=== PATIENT | female | born 1940 | race Caucasian/White ===

== ENCOUNTER → 2023-11-02 14:00 | Outpatient (REF) | payer OTHER, SELFPAY ==
[2023-11-02 17:24] LABS: Urine Albumin Negative (Neg - Trace); Urine Bilirubin Negative (Negative); Urine Character Clear (Clear); Urine Color Yellow; Urine Glucose Negative (Negative); Urine Ketone Negative (Negative); Urine Leukocyte 2+ (Negative); Urine Nitrite Negative (Negative); Urine Occult Blood 2+ (Negative); Urine Specific Gravity 1.005 (<1.030); Urine Urobilinogen Negative (Neg - 1+)
[2023-11-02 18:06] LABS: Urine Bacteria Few (Negative); Urine White Cell 26-30 /HPF (0-5)
== END ==
LOC: CLAB 14:00
PROVIDERS: ATTENDING PHYSICIAN Internal Medicine
DX: R39.9 Unspecified symptoms and signs involving the genitourinary system (principal)
CPT/HCPCS: 81003; 81015; 87086; 87088; 87186

== ENCOUNTER → 2023-11-12 14:34 | Outpatient (REF) | payer OTHER, SELFPAY | LOC: WDC 14:34 | PROVIDERS: ATTENDING PHYSICIAN Physician Assistant | DX: Z12.31 Encounter for screening mammogram for malignant neoplasm of breast (principal) | CPT/HCPCS: 77063; 77067 ==

== ENCOUNTER 2024-01-17 12:09 | Emergency (ER) | payer OTHER, SELFPAY ==
[2024-01-17] VITALS (18 sets, daily range): BP systolic 104–158; BP diastolic 47–100; BMI 24.6
[2024-01-17 13:39] LABS: % Basophils 0.5 % (0-2); % Eosinophils 2.2 % (0-6); % Immature Granulocytes 0.3 % (0-0.5); % Lymphocytes 26.3 % (20.5-51.1); % Monocytes 9.3 % (1.7-9.3); % Neutrophils 61.4 % (42.2-75.2); Absolute Eosinophils 0.1 10^3/uL (0-0.7); Absolute Lymphocytes 1.5 10^3/uL (1.2-3.4); Absolute Monocytes 0.5 10^3/uL (0.1-0.6); Absolute Neutrophils 3.6 10^3/uL (1.4-6.5); Hematocrit 39.3 % (37.0-47.0); Hemoglobin 13.4 g/dL (12.0-16.0); Mean Corp Hgb Conc. 34.1 g/dL (33.0-37.0); Mean Corpuscular Hgb 31.3 pg (27.0-31.0); Mean Corpuscular Volume 91.8 fL (81.0-99.0); Mean Platelet Volume 9.9 fL (7.4-10.4); Nucleated Red Blood Cells % 0 %; Platelet Count 157 10^3/uL (130-400); Red Blood Cell Count 4.28 10^6/uL (4.20-5.40); Red Cell Dist. Width 12.1 % (11.5-14.5); White Blood Cell Count 5.8 10^3/uL (4.8-10.8)
[2024-01-17 13:48] LABS: ALT (SGPT) 26 U/L (0-35); AST (SGOT) 39 U/L (14-36); Albumin 4.5 g/dl (3.5-5.0); Alkaline Phosphatase 84 U/L (38-126); Blood Urea Nitrogen 14 mg/dl (7-17); Calcium 9.6 mg/dl (8.4-10.2); Carbon Dioxide 24 mmol/L (22-30); Chloride 105 mmol/L (98-107); Estimated Creatinine Clearance 53 ml/min; Glucose 97 mg/dl (70-99); Potassium 4.2 mmol/L (3.5-5.1); Sodium 137 mmol/L (135-145); Total Bilirubin 0.8 mg/dl (0.2-1.3); eGFR > 60.00
--- NOTE | 2024-01-17 14:03 | ED.GENMED ---
History of Present Illness
<Loreta Garcia NP - Last Filed: 01/17/24 20:35>
General
Chief Complaint: Heart Rate Problem
Source: patient
Exam Limitations: none
Time Seen by Provider: 01/17/24 13:56
Nursing documentation reviewed up to this point in time: agreed with
Travel History
Have you had any contact with someone who has COVID-19?: No
Do you have any symptoms of coronavirus? Fever > 100 degrees, chills, cough, shortness of breath, sore throat, loss of taste or smell, muscle aches, or headache?: No
History of Present Illness
History of Present Illness:
Patient to ED with complaint of Afib. States she suddenly felt her heart racing, checked rhythm on her watch. She has had prior episodes of Afib but has always converted without intervention. Brought to ED by spouse for eval. Denies any
CP/pressure. Mild SETRADA. SHe is not on blood thinners.
Past History
<Loreta Garcia NP - Last Filed: 01/17/24 20:35>
Past History
ED Past Medical History: Arrthythmia and HTN; Negative Asthma, Hypercholesterolemia or NIDDM
ED Past Surgical History: Other (Aortic disection on Asending aorta)
Social History
Tobacco: Non-smoker
Alcohol: Occasional
Personal:
Living: with family
Review of Systems
<Loreta Garcia NP - Last Filed: 01/17/24 20:35>
Review of Systems
Allergies reviewed?: Yes
All Other Systems: ROS reviewed and negative except as documented in HPI and ROS
Constitutional: Reports no symptoms
EENT: Reports no symptoms
Respiratory: Reports other (Mild ESTRADA)
Cardiac: Reports palpitations
ABD/GI: Reports no symptoms
Musculoskeletal: Reports no symptoms
Skin: Reports no symptoms
Neurological: Reports no symptoms
Psychiatric: Reports no symptoms
Phy Exam
<Loreta Garcia NP - Last Filed: 01/17/24 20:35>
General Physical Exam
General Presentation: well appearing and no apparent distress
General age: appears stated age
General Skin: warm and dry
General Habitus: normal
General Mental: alert
General Hydration: appears well hydrated
Cardiovascular Exam
Cardiovascular Exam: no edema and irregularly irregular
Pulmonary Exam
Pulmonary Exam: lungs clear and no respiratory distress
Gastrointestinal Exam
Gastrointestinal Exam: non tender and soft
Musculoskeletal Exam
Musculoskeletal Exam: full ROM and neuro vasc intact
Skin Exam
Skin Exam: normal color, warm/dry and no rash
Psychiatric Exam
Psychiatric Exam: normal mood/affect
Scores
<Loreta Garcia NP - Last Filed: 01/17/24 20:35>
[id number] Score for Afib Stroke Risk
Score: 5
Anticoagulation Recommendations: Recommend anticoagulation (as validated in nonvalvular fib)
<Venkat Maradiaga DO - Last Filed: 01/17/24 15:50>
[id number] Score for Afib Stroke Risk
Age in Years (65=0, 65-74=1, >/=75=2): > or = 75
Sex (Female=+1): Female
Congestive Heart Failure History (Yes=+1): No
Hypertension History (Yes=+1): Yes
Stroke/TIA/Thromboembolism History (Yes=+2): No
Vascular Disease History (Yes=+1): Yes
Diabetes Mellitus (Yes=+1): No
Score: 5
Anticoagulation Recommendations: Recommend anticoagulation (as validated in nonvalvular fib)
Course
<Loreta Garcia NP - Last Filed: 01/17/24 20:35>
Orders/Labs/Results
Orders:
Orders
01/17/24 12:11
Electrocardiogram (*1) Urgent
Reason for Study: Bradycardia / Tachycardia
EKG- Treatment ONCE
01/17/24 13:24
Complete Blood Count/With Diff Urgent
Comprehensive Metabolic Panel Urgent
01/17/24 15:23
Propofol [Diprivan] 20 ml .ROUTE .STK-MED
01/17/24 15:34
Electrocardiogram (*1) Urgent
Reason for Study: Other
Other Reason for Exam: Post cardioversion
EKG- Treatment ONCE
Abnormal Lab Results
01/17/24
13:24
MCH 31.3 H pg
(27.0-31.0)
AST 39 H U/L
(14-36)
01/17/24 13:24
01/17/24 13:24
Vital Signs
Initial and Last Documented VS:
Initial Vital Signs
Temp Pulse Resp BP Pulse Ox
98.8 F 119 16 158/100 98
01/17/24 12:14 01/17/24 12:14 01/17/24 12:14 01/17/24 12:14 01/17/24 12:14
Last Documented Vital Signs
Temp Pulse Resp BP Pulse Ox
98.7 F 59 13 141/58 97
01/17/24 16:15 01/17/24 16:30 01/17/24 16:30 01/17/24 16:30 01/17/24 16:30
<Venkat Maradiaga DO - Last Filed: 01/17/24 15:50>
Orders/Labs/Results
Orders:
Orders
01/17/24 12:11
Electrocardiogram (*1) Urgent
Reason for Study: Bradycardia / Tachycardia
EKG- Treatment ONCE
01/17/24 13:24
Complete Blood Count/With Diff Urgent
Comprehensive Metabolic Panel Urgent
01/17/24 15:23
Propofol [Diprivan] 20 ml .ROUTE .STK-MED
01/17/24 15:34
Electrocardiogram (*1) Urgent
Reason for Study: Other
Other Reason for Exam: Post cardioversion
EKG- Treatment ONCE
Abnormal Lab Results
01/17/24
13:24
MCH 31.3 H pg
(27.0-31.0)
AST 39 H U/L
(14-36)
01/17/24 13:24
01/17/24 13:24
Vital Signs
Initial and Last Documented VS:
Initial Vital Signs
Temp Pulse Resp BP Pulse Ox
98.8 F 119 16 158/100 98
01/17/24 12:14 01/17/24 12:14 01/17/24 12:14 01/17/24 12:14 01/17/24 12:14
Last Documented Vital Signs
Temp Pulse Resp BP Pulse Ox
98.7 F 59 13 141/58 97
01/17/24 16:15 01/17/24 16:30 01/17/24 16:30 01/17/24 16:30 01/17/24 16:30
Procedures
<Venkat Maradiaga, DO - Last Filed: 01/17/24 15:50>
Cardioversion
Indication:: Afib
Performed by:: vic
Synchronized?: Yes
Energy Used: Other (100J)
Number of attempts: 1
Successful?: Yes
Complications: none
ASA Risk Score: Class II
Any reaction or bad outcome to prior sedation/anesthesia?: No history of a reaction
Sedation level to be attained: deep
Chart and allergies reviewed: Yes
Patient reassessed prior to sedation: Yes
Time out completed at (validating right patient & procedure): 15:29
History of difficult intubation: No
Airway free of obstruction: Yes
Patient has a gag reflex: Yes
Patient is able to open mouth: Yes
Patient has no dentures: Yes
Patient has no loose teeth: Yes
Medication administered by Provider during Moderate Sedation: IV Propofol (mg)
Total dose administered: 75
Time drug administered: 15:29
Start Time: 15:29
Stop Time: 15:39
<Loreta Garcia NP - Last Filed: 01/17/24 20:35>
*Radiology
Radiology exam reviewed: radiology read reviewed
*Pulse Oximetry
Patient hypoxic: no
*EKG
Rate: normal
Rhythm: a-fib
*Critical Care Note
Total Time (30-74mins, 75-104mins- exclusive of procedures): Not Applicable
<Loreta Garcia NP - Last Filed: 01/17/24 20:35>
Update Note
Update Note:
Cardioversion by Dr. Maradiaga.
ED Attending Note
<Loreta Garcia NP - Last Filed: 01/17/24 20:35>
-
Portions of this chart may have been created with voice recognition software.� Occasional wrong word or��sound alike� substitutions may have occurred due to the inherent limitations of voice recognition software.
<Venkat Maradiaga DO - Last Filed: 01/17/24 15:50>
ED Attending Note
Patient seen and examined by attending physician: Yes
I performed the substantive portion of visit, reviewed & personally made and approve the management plan that is documented in note by myself or WOOD.: Yes
ED Attending Note:
Patient 83-year-old female went into atrial fibrillation earlier this morning. Patient's had these episodes intermittently but never lasted for more than 15 to 20 minutes. Patient denies any recent illnesses or injuries. Patient denies any chest
pain, shortness of breath or lightheadedness. Patient does feel off. Patient denies any GI or symptoms. Patient is not anticoagulated. On physical exam the patient does not appear to be in any distress. Heart rate is mildly tachycardic and
irregular irregular rhythm. No neck vein distention. Patient has no peripheral edema, cyanosis or tenderness. Abdomen soft nontender. Lungs are clear. Patient has a mildly tachycardic atrial fibrillation. Patient agreed for cardioversion which
was done successfully 100 J.
Discharge Plan
Departure
Patient Disposition: Home (Routine Discharge)
Date of Disposition: 01/17/24
Time of Disposition: 16:44
Patient with high blood pressure during this ER visit?: No
Condition: Good
Covid-19: Not Applicable
Discharge Problem:
Atrial fibrillation with rapid ventricular response, Encounter for cardioversion procedure
Instructions: Atrial Fibrillation (DC), Cardioversion (DC), MODERATE SEDATION ADULT
Prescriptions:
New
Eliquis 5 mg tablet
5 mg PO BID Qty: 30 1RF
No Action
multivitamin Tablet
1 tab PO QPM
clonidine HCl 0.1 mg Tablet
0.1 mg PO PRN PRN (Reason: SBP> 130)
gabapentin 600 mg Tablet
600 mg PO QPM
cyanocobalamin (vitamin B-12) [Vitamin B-12] 1,000 mcg Tablet
1,000 mcg PO MOWEFR
spironolactone [Aldactone] 25 mg Tablet
25 mg PO DAILY
isosorbide mononitrate 120 mg Tablet Extended Release 24 Hr
120 mg PO HS
levothyroxine 88 mcg Tablet
88 mcg PO DAILY
amlodipine 10 mg Tablet
10 mg PO DAILY
metoprolol succinate 25 mg Tablet Extended Release 24 Hr
12.5 mg PO HS
losartan 100 mg Tablet
100 mg PO DAILY
mupirocin 2 % ointment
1 applic topical BID Qty: 1 0RF
Patient Comments:
last dose was this am, 08/20/22
sennosides [senna] 8.6 mg Tablet
17.2 mg PO BID Qty: 2 0RF
aspirin 325 mg Tablet
325 mg PO DAILY Qty: 1 0RF
docusate sodium 100 mg Capsule
100 mg PO BID Qty: 1 0RF
meloxicam 15 mg tablet
15 mg PO DAILY Qty: 14 0RF
Rx Instructions:
take with food
post-op
famotidine 20 mg tablet
20 mg PO HS Qty: 30 0RF
dexamethasone 4 mg tablet
4 mg PO BID Qty: 6 0RF
Rx Instructions:
take with food
post-op use only
acetaminophen 500 mg Tablet
1,000 mg PO QID Qty: 0 0RF
oxycodone 5 mg tablet
5 - 10 mg PO Q6HPRN PRN (Reason: 1 tab moderate-2 tabs severe pain) Qty: 30 0RF
Rx Instructions:
Dx TKA
ongoing therapy
Referrals:
Chip Clemons MD [Active] - Call in 1-3 days for appt
Donal Figueredo MD [Family Provider] - Follow up in 5-7 days
Activity Restrictions/Additional Instructions:
Continue present medications and therapy.
Interventions
Interventions:
*Risk Screen - Suicide Last Done: 01/17/24 13:00
*General Assessment Last Done: 01/17/24 13:23
*Neglect/Abuse Screening Last Done: 01/17/24 13:00
ED- Fall Risk Assessment Last Done: 01/17/24 13:25
*ED COVID-19 Vaccine History Last Done: 01/17/24 12:14
*Nursing Disposition Last Done: 01/17/24 17:18
ED- Cardiac Assessment Last Done: 01/17/24 13:25
ED- Pulmonary Assessment Last Done: 01/17/24 13:25
Discharge Date and Time
Discharge Date/Time: 01/17/24 17:21
Print Language: [place]
== END 2024-01-17 17:21 | disposition home or self-care (01) ==
LOC: EMR 12:09
PROVIDERS: EMERGENCY PHYSICIAN Emergency Medicine; FAMILY PHYSICIAN Internal Medicine
DX: I48.91 Unspecified atrial fibrillation (principal); I10 Essential (primary) hypertension
CPT/HCPCS: 99285; 92960; 99152; 80053; 85025; 93005

== ENCOUNTER → 2024-01-27 09:07 | Outpatient (REF) | payer OTHER, SELFPAY ==
[2024-01-27 13:52] LABS: Free T4 1.04 ng/dl (0.78-2.19)
[2024-01-27 14:06] LABS: TSH 1.67 uIU/ml (0.47-4.68)
== END ==
LOC: HWLAB 09:07
PROVIDERS: ATTENDING PHYSICIAN Internal Medicine
DX: E03.9 Hypothyroidism, unspecified (principal)
CPT/HCPCS: 36415; 84439; 84443

== ENCOUNTER → 2024-01-31 08:15 | Outpatient (REF) | payer OTHER, SELFPAY | LOC: HWRAD 08:15 | PROVIDERS: ATTENDING PHYSICIAN Internal Medicine; FAMILY PHYSICIAN Internal Medicine | DX: I71.03 Dissection of thoracoabdominal aorta (principal) | CPT/HCPCS: 71275; Q9967 ==

== ENCOUNTER 2024-02-05 22:25 | Inpatient (IN) | payer OTHER, SELFPAY ==
[2024-02-05] VITALS (12 sets, daily range): BP systolic 115–153; BP diastolic 66–98
[2024-02-05 20:51] LABS: % Basophils 0.3 % (0-2); % Eosinophils 1.9 % (0-6); % Immature Granulocytes 0.2 % (0-0.5); % Lymphocytes 28.3 % (20.5-51.1); % Monocytes 8.4 % (1.7-9.3); % Neutrophils 60.9 % (42.2-75.2); Absolute Eosinophils 0.1 10^3/uL (0-0.7); Absolute Lymphocytes 1.6 10^3/uL (1.2-3.4); Absolute Monocytes 0.5 10^3/uL (0.1-0.6); Absolute Neutrophils 3.5 10^3/uL (1.4-6.5); Hematocrit 38.9 % (37.0-47.0); Mean Corpuscular Hgb 31.6 pg (27.0-31.0); Mean Corpuscular Volume 87.8 fL (81.0-99.0); Mean Platelet Volume 10.2 fL (7.4-10.4); Nucleated Red Blood Cells % 0 %; Platelet Count 171 10^3/uL (130-400); Red Blood Cell Count 4.43 10^6/uL (4.20-5.40); White Blood Cell Count 5.8 10^3/uL (4.8-10.8)
[2024-02-05 21:12] LABS: ALT (SGPT) 26 U/L (0-35); AST (SGOT) 39 U/L (14-36); Albumin 5.1 g/dl (3.5-5.0); Alkaline Phosphatase 84 U/L (38-126); Blood Urea Nitrogen 12 mg/dl (7-17); Calcium 10.3 mg/dl (8.4-10.2); Carbon Dioxide 24 mmol/L (22-30); Chloride 102 mmol/L (98-107); Glucose 96 mg/dl (70-99); Potassium 3.9 mmol/L (3.5-5.1); Sodium 138 mmol/L (135-145); Total Bilirubin 0.9 mg/dl (0.2-1.3); Total Protein 7.4 g/dl (6.3-8.2); eGFR > 60.00
[2024-02-05] MEDS: CARDIZEM 5 MG IV (21:16)
[2024-02-05] MEDS: CARDIZEM 125 IV (21:18)
[2024-02-05 21:41] LABS: TSH 2.37 uIU/ml (0.47-4.68)
--- NOTE | 2024-02-05 21:44 | ED.GENMED ---
History of Present Illness
General
Chief Complaint: Heart Rate Problem
Source: patient, records and spouse
Exam Limitations: none
Time Seen by Provider: 02/05/24 20:29
Nursing documentation reviewed up to this point in time: agreed with
History of Present Illness
History of Present Illness:
83-year-old female presents emergency ferment due to rapid atrial fibrillation. Recent cardioversion. Recently started on Eliquis.
Past History
Past History
ED Past Medical History: Arrthythmia and HTN; Negative Asthma, Hypercholesterolemia or NIDDM
ED Past Surgical History: Other (Aortic disection on Asending aorta)
Social History
Tobacco: Non-smoker
Alcohol: Occasional
Personal:
Living: with family
Review of Systems
Review of Systems
Allergies reviewed?: Yes
All Other Systems: Not applicable
Constitutional: Reports no symptoms
EENT: Reports no symptoms
Respiratory: Reports no symptoms
Cardiac: Reports palpitations
ABD/GI: Reports no symptoms
: Reports no symptoms
Musculoskeletal: Reports no symptoms
Skin: Reports no symptoms
Neurological: Reports no symptoms
Endocrine: Reports no symptoms
Hematologic/Lymphatic: Reports no symptoms
Psychiatric: Reports no symptoms
Phy Exam
Physical Exam
Physical Exam:
Physical Exam
General: no apparent distress, not acutely ill
Neck: supple. no meningeal signs. normal posterior pharynx
Heart: s1/s2 tachycardia, irregular rhythm, no murmur. equal radial
pulses.
HEENT: Pupils equal round reactive to light, EOMI
Lungs: no acute respiratory distress. clear bilaterally
Abdomen: normal bowel sounds. not tender. no CVAT
Neuro: alert and oriented. no focal neurological deficits cranial nerves II through XII intact
Skin: no rash
Psychiatric: well kept. interactive and cooperative
Extremities: no edema. no calf tenderness. negative homans. good distal pulses
Course
Orders/Labs/Results
Orders:
Orders
02/05/24 19:51
EKG [Electrocardiogram (*1)] Urgent
Reason for Study: Bradycardia / Tachycardia
02/05/24 19:52
EKG- Treatment ONCE
02/05/24 20:46
CBC/With Diff [Complete Blood Count/With Diff] Urgent
CMP [Comprehensive Metabolic Panel] Urgent
TSH Urgent
02/05/24 21:00
Diltiazem 125 mg/125 ml Nss [Cardizem] 125 mg in 125 ml IV NOW
Initial dose in mg/hr, then titrate:: 5
Titrate to keep:: Heart rate 80-100 bpm
Titrate by mg/hr:: 5 mg/hr
Frequency of titrations (minutes):: 15
Maximum dose in mg/hr:: 15
Diltiazem HCl [Cardizem] 5 mg IV NOW STA
Abnormal Lab Results
02/05/24
20:46
MCH 31.6 H pg
(27.0-31.0)
Calcium 10.3 H mg/dl
(8.4-10.2)
AST 39 H U/L
(14-36)
Albumin 5.1 H g/dl
(3.5-5.0)
02/05/24 20:46
02/05/24 20:46
Vital Signs
Initial and Last Documented VS:
Initial Vital Signs
Temp Pulse Resp BP Pulse Ox
97.9 F 136 22 149/98 98
02/05/24 19:56 02/05/24 19:56 02/05/24 19:56 02/05/24 19:56 02/05/24 19:56
Last Documented Vital Signs
Temp Pulse Resp BP Pulse Ox
97.9 F 97 14 149/89 96
02/05/24 19:56 02/05/24 21:16 02/05/24 21:00 02/05/24 21:16 02/05/24 21:00
MDM/Problems Addressed
Differential Diagnosis Includes:
Dysrhythmia, CHF
MDM/Problems Addressed:
83-year-old female with rapid atrial fibrillation, diltiazem drip. Patient taking Eliquis. On Eliquis for about 2 weeks. Recent cardioversion and return to A-fib. Admit to hospitalist for rate control and further evaluation.
Chronic conditions affecting care: HTN and Arrhythmia
Acute Exacerbation and/or Progression of Chronic Illness: HTN and Arrhythmia
*Pulse Oximetry
Patient hypoxic: no
*EKG
Interpreted by ED Provider?: Yes
EKG Intrepretation Date: 02/05/24
EKG Intrepretation Time: 19:54
Interpretation: abnormal
Comparison EKG: changes noted
Heart Rate: 112
Rate: tachycardiac
Rhythm: a-fib
[place]: left axis deviation
Interval: normal interval
QRS Pattern: right bundle branch block
Ischemia: non-specific ST changes
*Air And Water Filler Interpretation
Rate: tachycardiac
Interpretation: abnormal
Heart Rate: 112
Rhythm: a-fib
*Critical Care Note
Total Time (30-74mins, 75-104mins- exclusive of procedures): 30
comment:
Critical care statement: A total of 30 minutes of critical care time was provided for this patient. This includes management of unstable vital signs, evaluation of the patient at bedside, reviewing the patient's pertinent medical records, discussion
with consultants, review of old EKGs and review of pertinent medical records. This time with separate from time utilized to perform the aforementioned documented procedures
Data Reviewed
Source: records
Prescriptions/Medications Considered But Not Given:
Cardioversion not indicated due to patient's recent start of Eliquis and recent cardioversion and returned to A-fib.
Patient Management
Social determinants of health affecting care: Living situation
Discussion with other providers: Hospitalist
Escalation/DeEscalation of care consider admission/obs:
Admit indicated
ED Attending Note
-
Portions of this chart may have been created with voice recognition software.� Occasional wrong word or��sound alike� substitutions may have occurred due to the inherent limitations of voice recognition software.
Discharge Plan
Departure
Patient Disposition: Admit
Date of Disposition: 02/05/24
Time of Disposition: 21:48
Admit to: Telemetry
Presentation/result/management discussed w/ accepting MD/DO: Hospitalist
Patient with high blood pressure during this ER visit?: Yes
Condition: Good
Discharge Problem:
Atrial fibrillation with rapid ventricular response
Prescriptions:
No Action
multivitamin Tablet
1 tab PO QPM
clonidine HCl 0.1 mg Tablet
0.1 mg PO PRN PRN (Reason: SBP> 130)
gabapentin 600 mg Tablet
600 mg PO QPM
cyanocobalamin (vitamin B-12) [Vitamin B-12] 1,000 mcg Tablet
1,000 mcg PO MOWEFR
spironolactone [Aldactone] 25 mg Tablet
25 mg PO DAILY
isosorbide mononitrate 120 mg Tablet Extended Release 24 Hr
120 mg PO HS
levothyroxine 88 mcg Tablet
88 mcg PO DAILY
amlodipine 10 mg Tablet
10 mg PO DAILY
metoprolol succinate 25 mg Tablet Extended Release 24 Hr
12.5 mg PO HS
losartan 100 mg Tablet
100 mg PO DAILY
mupirocin 2 % ointment
1 applic topical BID Qty: 1 0RF
Patient Comments:
last dose was this am, 08/20/22
sennosides [senna] 8.6 mg Tablet
17.2 mg PO BID Qty: 2 0RF
aspirin 325 mg Tablet
325 mg PO DAILY Qty: 1 0RF
docusate sodium 100 mg Capsule
100 mg PO BID Qty: 1 0RF
meloxicam 15 mg tablet
15 mg PO DAILY Qty: 14 0RF
Rx Instructions:
take with food
post-op
famotidine 20 mg tablet
20 mg PO HS Qty: 30 0RF
dexamethasone 4 mg tablet
4 mg PO BID Qty: 6 0RF
Rx Instructions:
take with food
post-op use only
acetaminophen 500 mg Tablet
1,000 mg PO QID Qty: 0 0RF
oxycodone 5 mg tablet
5 - 10 mg PO Q6HPRN PRN (Reason: 1 tab moderate-2 tabs severe pain) Qty: 30 0RF
Rx Instructions:
Dx TKA
ongoing therapy
Eliquis 5 mg tablet
5 mg PO BID Qty: 30 1RF
Referrals:
Donal Figueredo MD [Family Provider] -
Interventions
Interventions:
*Risk Screen - Suicide Last Done: 02/05/24 19:56
*General Assessment Last Done: 02/05/24 19:56
*Neglect/Abuse Screening Last Done: 02/05/24 19:56
Discharge Date and Time
Print Language: TURKMEN
--- NOTE | 2024-02-05 22:07 | HPS.HSE ---
Family Physician
-
Family Physician: Donal Figueredo
Chief Complaint
-
racing heart
History of Present Illness
83F HX Prx AF , recently cardioverted on 01/17/24 and started on Eliquis 2weeks ago eval at ER for symptomatic fast AF.
- came to ER due to racing heart for last 1 Hrs
- denied SoB, CP, lightheadedness
Medical History
Past Medical History
Past Medical History: Reports Other
Additional Past Medical History:
1. Osteoarthritis.
2. Hypertension.
3. Hyperlipidemia.
4. Nonsustained ventricular tachycardia.
5. Bradycardia.
6. Right bundle branch block.
7. Aortic dissection status post repair.
8. Bronchiectasis.
9. Peripheral neuropathy.
10.Hypothyroidism.
Past Surgical History: Reports Other
Additional Past Surgical History:
1. Aortic dissection with AV resuspension, 2017.
2. Left total hip arthroplasty.
3. Right total hip arthroplasty.
4. Blepharoplasty.
5. Left thumb surgery.
Social History
Tobacco: Non-smoker
Alcohol: Occasional ( two drinks three nights a week.)
Drug: None
Family History
Family History: Not pertinent
Allergies / Home Medications
Allergies reflects when Allergies were last updated in [employer].
Home Medications with original date entered in [employer]
Allergy/Medication List:
Allergies
Allergy/AdvReac Type Severity Reaction Status Date / Time
Sulfa (Sulfonamide Allergy GI Upset - Verified 01/17/24 12:17
Antibiotics) 'long ago'
Home Medications
amlodipine 10 mg tablet 10 mg PO DAILY Blood pressure 07/28/22
clonidine HCl 0.1 mg tablet 0.1 mg PO PRN PRN SBP> 130 07/28/22
cyanocobalamin (vitamin B-12) 1,000 mcg tablet (Vitamin B-12) 1,000 mcg PO MOWEFR Supplement 07/28/22
gabapentin 600 mg tablet 600 mg PO QPM Neurological Condition 07/28/22
isosorbide mononitrate 120 mg tablet,extended release 24 hr 120 mg PO HS Heart disease/condition 07/28/22
levothyroxine 88 mcg tablet 88 mcg PO DAILY Thyroid 07/28/22
losartan 100 mg tablet 100 mg PO DAILY Blood pressure 07/28/22
metoprolol succinate 25 mg tablet,extended release 24 hr 12.5 mg PO HS Blood pressure 07/28/22
multivitamin 1 tab PO QPM Supplement 07/28/22
spironolactone 25 mg tablet (Aldactone) 25 mg PO DAILY Fluid retention/Swelling 07/28/22
mupirocin 2 % topical ointment 1 applic topical BID #1 tube 07/30/22
acetaminophen 500 mg tablet 1,000 mg (2 x 500 mg) PO QID #0 tabs 08/21/22
aspirin 325 mg tablet 325 mg PO DAILY Blood clot prevention/tx #1 tab 08/21/22
dexamethasone 4 mg tablet 4 mg PO BID inflammation #6 tabs 08/21/22
docusate sodium 100 mg capsule 100 mg PO BID #1 cap 08/21/22
famotidine 20 mg tablet 20 mg PO HS GI prophylaxis #30 tabs 08/21/22
meloxicam 15 mg tablet 15 mg PO DAILY anti-inflammatory #14 tabs 08/21/22
oxycodone 5 mg tablet 5 - 10 mg (1 - 2 x 5 mg) PO Q6HPRN PRN 1 tab moderate-2 tabs severe pain #30 tabs 08/21/22
sennosides 8.6 mg tablet (senna) 17.2 mg (2 x 8.6 mg) PO BID #2 tabs 08/21/22
apixaban 5 mg tablet (Eliquis) 5 mg PO BID #30 tabs 01/17/24
Review of Systems
-
Constitutional: Reports No Symptoms
EENT: Reports No Symptoms
Respiratory: Reports No Symptoms
Cardiac: Reports See HPI and Palpitations; Denies Chest Pain, Diaphoresis or Syncope
Abdomen/GI: Reports No Symptoms
: Reports No Symptoms
Musculoskeletal: Reports No Symptoms
Skin: Reports No Symptoms
Neurological: Reports No Symptoms
Endocrine: Reports No Symptoms
Hematologic/Lymphatic: Reports No Symptoms
Psych: Reports No Symptoms
Physical Exam
Vital Signs
Vital Signs
Temp Pulse Resp BP Pulse Ox
97.9 F 97 14 149/89 96
02/05/24 19:56 02/05/24 21:16 02/05/24 21:00 02/05/24 21:16 02/05/24 21:00
Physical Exam
General: Well Developed, Well Nourished and No Apparent Distress
HEENT: NormoCephalic, Moist mucous membranes and Atraumatic
Respiratory: Clear
Cardiac: S1/S2, Irregular Rhythm, Tachycardia and Murmur (soft short mumur at LUSB ? diastolic ); No Rub
GI: Soft, Non Tender, Non Distended and Normal Bowel Sounds; No Organomegaly
Rectal: Deferred by Provider
Musculoskeletal: No Clubbing, No Cyanosis and Other (minimal b/l ankle trace edema )
Skin: No Rash
Neuro: AO x 3 and Nonfocal/grossly intact
Psych: Calm
Laboratory Results
-
02/05/24 20:46
02/05/24 20:46
Laboratory Results
Total Bilirubin 0.9 mg/dl (0.2-1.3) 02/05/24 20:46
AST 39 U/L (14-36) H 02/05/24 20:46
ALT 26 U/L (0-35) 02/05/24 20:46
Alkaline Phosphatase 84 U/L (38-126) 02/05/24 20:46
Data Reviewed
-
Lab Data: Labs Reviewed by me
Old Records: Reviewed
Impression/Plan
-
Reviewed VS: Afebrile HR 120 --> 97 128/75 --> 150/90
Data
Unremarkable CBC
Unremarkable CMP
Ca 10.3
AST 39
TSH 2.37
EKG report
ATRIAL FIBRILLATION WITH RAPID VENTRICULAR RESPONSE
LEFT AXIS DEVIATION
RIGHT BUNDLE BRANCH BLOCK
ABNORMAL ECG
WHEN COMPARED WITH ECG OF 17-JAN-2024 15:39,
ATRIAL FIBRILLATION HAS REPLACED SINUS RHYTHM
VENT. RATE HAS INCREASED BY 63 BPM
ST NOW DEPRESSED IN ANTERIOR LEADS
05/02/21 ECHO
LVEF 60-65
Mild to mod MR
Mild to mod AR
Moderately elevated PASP.
No prior hospitalist admission:
ASSESSMENT & PLAN
Paroxysmal AF with RVR : mildly symptomatic
Noted mild to mod MR per 2020 ECHO
Known HX heart murmur and valvular heart dz
- Hemodynamically stab;e
- s/p successful CV on 01/07/24
- on Eliquis for last 2 weeks - to be cont
- escalade Metoprolol succinate to 12.5 mg BID then 25 mg daily till eval by Card
- agree with Diltiazem gtt
- clear diet till card eval in AM
- ECHO in AM vs Wednesday
- CBC card consult
Essential HTN
- cont OP Rx : Pending Rx reconciliation
Hypothyroidism;
- stable
- normal TSH on current LT4
Pre existing conditions HEALTH AND WELLNESS DIRECTOR: Pending Rx reconciliation
Hyperlipidemia.
HX Nonsustained ventricular tachycardia.
HX Bradycardia.
HX Right bundle branch block.
HX Aortic dissection status post repair.
HX Bronchiectasis.
HX Peripheral neuropathy.
Osteoarthritis.
DVT Px: on Eliquis
Code: full code
IVU
--- NOTE | 2024-02-05 23:30 | PTCARENOTE ---
Pt arrived to floor via stretcher from the ED. Pt AAOx3. Pt able to ambulate from stretcher into room without difficulty. Tele pack not working, Pt placed on Hard[employer] monitor. HR in the 40's and dipping into the 30's with short pauses noted. SB with
BBB, Prolonged QT, PAC's, PVC's. 2 Lo2 NC applied per Ed Hamilton Cardiac PA. POX 95% on RA prior to 2 Lo2. Hyper bowel. Pt able to ambulate to bathroom with assist when needed. Palpable peripheral pulses. trace B/L LE edema noted. Pt denies any
complaints of pain. Fiance at bedside, All questions answered. call [place] in reach. Will continue to monitor.
[2024-02-05] MEDS: ELIQUIS 5 MG PO (23:58)
[2024-02-06 00:29] VITALS: BP 130/60
[2024-02-06 00:35] VITALS: BMI 23.4
[2024-02-06 00:37] VITALS: BMI 23.4
[2024-02-06 04:29] VITALS: BP 119/48
[2024-02-06 06:00] VITALS: BMI 23.2
[2024-02-06] MEDS: SYNTHROID 88 MCG PO (06:09)
[2024-02-06 07:55] VITALS: BP 123/50
[2024-02-06] MEDS: ELIQUIS 5 MG PO (08:04)
--- NOTE | 2024-02-06 08:14 | PTCARENOTE ---
Received pt from systems engineer RN; pt AAOx3 and resting comfortably in chair; Sinus Richardson, BBB and Prolonged QT on monitor and VSS; Lungs clear; positive bowel sounds and pt voiding clear yellow urine; palpable pulses throughout; trace lower extremity
edema noted; see nursing documentation for further details.
--- NOTE | 2024-02-06 09:32 | W.PN.HOSP.TC ---
Today's Communication/Plan
-
Await cardiology input
Continue with the beta-carlito and Eliquis
DC planning
Assessment / Plan
Assessment / Plan
Paroxysmal AF with RVR
Noted mild to mod MR per 2020 ECHO
Known HX heart murmur and valvular heart dz
- Hemodynamically stable
- s/p successful CV on 01/07/24
- on Eliquis for last 2 weeks - to be cont
-Increase metoprolol succinate to 12.5 mg BID then 25 mg daily till eval by Card
-Off of diltiazem gtt this morning as heart rate improved
- ECHO-scheduled echo for this Wednesday
-Await CBC card consult
Essential HTN
- cont OP Rx : Continue with home medication
Hypothyroidism;
- stable
- normal TSH on current LT4
Pre existing conditions [employer]:
Hyperlipidemia.
HX Nonsustained ventricular tachycardia.
HX Bradycardia.
HX Right bundle branch block.
HX Aortic dissection status post repair.
HX Bronchiectasis.
HX Peripheral neuropathy.
Osteoarthritis.
DVT Px: on Eliquis
Code: full code
IVU
DC home if okay from cardiology standpoint
Anticipated Discharge: Today
Subjective/Interval History
-
Date of Service: February 06, 2024
Patient heart rate under control. In fact on the lower side.
Off of Cardizem drip.
Patient had an A-fib with RVR for an hour at home. Denies any dizziness, chest pain, shortness of breath when it happened.
New A-fib since December this year. S/p cardioversion 2 weeks ago.
Objective Data
-
Vital Signs:
Vital Signs
Temp Pulse Resp BP Pulse Ox
98.7 F 39 20 119/48 97
02/06/24 07:53 02/06/24 04:30 02/06/24 07:53 02/06/24 04:29 02/06/24 07:53
I&O
02/05/24 02/06/24 02/07/24
06:59 06:59 06:59
Intake Total 480 / 480
Balance 480 / 480
Review of Systems
-
Constitutional: Denies Fever
EENT: Denies Sore Throat
Respiratory: Denies Cough or Trouble Breathing
Abdomen/GI: Denies Abdominal Pain, Nausea or Vomiting
Neuro: Denies Dizzy
Physical Exam
-
General: No Apparent Distress
HEENT: Moist Mucous Membranes
Respiratory: Clear to Auscultation
Cardiac: S1/S2 and Irregular Rhythm; Negative Tachycardic
Neuro: AO x 3
Psych: Calm
Data Reviewed
-
Labs: Labs Reviewed by me
[2024-02-06 11:37] VITALS: BP 128/61
[2024-02-06] MEDS: TOPROL XL 12.5 MG PO (12:12)
--- NOTE | 2024-02-06 14:07 | W.PN.UPDATE ---
Addendum entered and electronically signed by Marquez Welsh MD 02/06/24 15:04:
Correction.
The summary of my consultation is ON THE CORRECT PT. Disregard the correction below.
Addendum entered and electronically signed by Marquez Welsh MD 02/06/24 15:03:
-
-
CORRECTION:
BELOW NOTE INCORRECT> WAS ENTERED ON WRONG CHART.
Disregard.
-
-
Original Note:
Update Note
Progress Note Update
Consult dictated
PAF
HTN
NSVT
Sinus yuly, w.o symptoms
Aortic dissection repaired, 2017
RBBB
Plan
Add prn propranolol, outpatient ablation consult. Option for Tikosyn or option for PPM + more rate control reviewed. AFib risk factor modification noted.
OK for home today
--- NOTE | 2024-02-06 14:14 | PTCARENOTE ---
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
--- NOTE | 2024-02-06 15:07 | W.DS.TRANS ---
DC Summary - Shareholder
-
Discharge Instructions:
Sleep Apnea Risk Low
Discharge Diagnosis/Procedures Paroxysmal atrial fibrillation with RVR
Diet 2 Gram Sodium
Activity As tolerated
Driving Restrictions As prior to admission
Bathing Restrictions None
Instructions:
Stand-Alone Forms:
Changes to Home Medications: Yes
Discharge Medications:
DC Medications w/original date entered in [employer]
amlodipine 10 mg tablet 10 mg PO DAILY Blood pressure 07/28/22
clonidine HCl 0.1 mg tablet 0.1 mg PO PRN PRN SBP> 130 07/28/22
cyanocobalamin (vitamin B-12) 1,000 mcg tablet (Vitamin B-12) 1,000 mcg PO MOWEFR Supplement 07/28/22
gabapentin 600 mg tablet 600 mg PO QPM Neurological Condition 07/28/22
levothyroxine 88 mcg tablet 88 mcg PO DAILY Thyroid 07/28/22
losartan 100 mg tablet 100 mg PO DAILY Blood pressure 07/28/22
metoprolol succinate 25 mg tablet,extended release 24 hr 25 mg PO HS Blood pressure 07/28/22
multivitamin 1 tab PO QPM Supplement 07/28/22
apixaban 5 mg tablet (Eliquis) 5 mg PO BID #30 tabs 01/17/24
isosorbide mononitrate 30 mg tablet,extended release 24 hr 30 mg PO HS Heart Disease/Condition 02/05/24
acetaminophen 500 mg tablet 1,000 mg PO QID Pain 02/06/24
mupirocin 2 % topical ointment 1 applic topical BID Infection 02/06/24
propranolol 20 mg tablet 20 mg PO TID PRN heart rate >110 #30 tabs 02/06/24
Home Medication Changes
New medication-propranolol 20 mg as needed
Pending Results: No
--- NOTE | 2024-02-08 15:48 | W.DCSUMMARY ---
Discharge Summary
Discharge Data
Date of Admission: 02/05/24
Date of Discharge: 02/06/24
-
Pending Results: No
Hospital Course
Primary diagnosis:
Paroxysmal atrial fibrillation with rapid ventricular rate
Secondary diagnosis:
essential hypertension
Hypothyroidism
History of aortic dissection status postrepair
Hospital course:
patient with a new recent onset of atrial fibrillation in December of this year presents with a symptomatic recurrent paroxysmal atrial fibrillation. She December had a electrical cardioversion. Was put on beta-carlito and Eliquis. She came back with
increased heart rate. She was briefly treated with IV diltiazem drip and she converted to sinus rhythm. There is no angina or heart failure.
Was seen by EP. Currently being treated with rate control strategy. She would need more rate control. He spoke to her about pacemaker for more aggressive rate control. For now the plan is to continue metoprolol and add prn Propranolol for rate
control. He also reviewed about the dofetilide and A-fib ablation with the patient.
The patient was comfortable going home with the initial propranolol as needed strategy; she will consider her options and follow-up with the cardiology.She is currently leaning towards seeking AFib ablation consultation which is thought to be a
very good option for this patient.
Consultants on board:
Cardiology-Marquez Carrion
Discharge Plan
-
Patient Disposition: Home (Routine Discharge)
Discharge Diagnosis/Procedures: Paroxysmal atrial fibrillation with RVR
Diet: 2 Gram Sodium
Activity: As tolerated
Driving Restrictions: As prior to admission
Bathing Restrictions: None
Referrals:
Donal Figueredo MD [Family Provider] - in less than 1 week
Marquez Welsh MD [Active] - in one to two weeks
Prescriptions:
New
propranolol 20 mg tablet
20 mg PO TID PRN (Reason: heart rate >110) Qty: 30 0RF
Continued
multivitamin Tablet
1 tab PO QPM
clonidine HCl 0.1 mg Tablet
0.1 mg PO PRN PRN (Reason: SBP> 130)
gabapentin 600 mg Tablet
600 mg PO QPM
cyanocobalamin (vitamin B-12) [Vitamin B-12] 1,000 mcg Tablet
1,000 mcg PO MOWEFR
levothyroxine 88 mcg Tablet
88 mcg PO DAILY
amlodipine 10 mg Tablet
10 mg PO DAILY
metoprolol succinate 25 mg Tablet Extended Release 24 Hr
25 mg PO HS
losartan 100 mg Tablet
100 mg PO DAILY
Eliquis 5 mg tablet
5 mg PO BID Qty: 30 1RF
isosorbide mononitrate 30 mg tablet extended release 24 hr
30 mg PO HS
acetaminophen 500 mg tablet
1,000 mg PO QID
mupirocin 2 % ointment
1 applic topical BID
Patient Comments:
last dose was this am, 08/20/22
Discharge Orders:
Discharge Patient (As Directed); Ordered 02/06/24
Ordered By: Jose Bennett
Care Plan Goals
Care Plan Goals:
Problem: Readiness for enhanced knowledge related to diagnosis and treatment plan
Goal: Understand your diagnosis and treatment plan needs, including medications if applicable.
Instructions: Know your diagnosis, underlying causes and treatment plan options, including medications if applicable. Consult with your health care team to learn about your diagnosis and treatment plan, including medications if applicable.
Discharge Date and Time
Discharge Date/Time: 02/06/24 16:00
Print Language: THAI
== END 2024-02-06 16:00 | disposition home or self-care (01) | DRG 310 ==
LOC: IVU 22:25
PROVIDERS: ADMITTING PHYSICIAN Internal Medicine; ATTENDING PHYSICIAN Internal Medicine; CONSULT PHYSICIAN Internal Medicine Cardiovascular Disease; EMERGENCY PHYSICIAN Emergency Medicine; FAMILY PHYSICIAN Internal Medicine
DX: I48.0 Paroxysmal atrial fibrillation (principal); M19.90 Unspecified osteoarthritis, unspecified site; I10 Essential (primary) hypertension; E78.5 Hyperlipidemia, unspecified; I45.10 Unspecified right bundle-branch block; J47.9 Bronchiectasis, uncomplicated; G62.9 Polyneuropathy, unspecified; E03.9 Hypothyroidism, unspecified; Z88.2 Allergy status to sulfonamides; Z79.01 Long term (current) use of anticoagulants; Z79.82 Long term (current) use of aspirin
CPT/HCPCS: 80053; 84443; 85025; 93005; 96374; 99291

== ENCOUNTER → 2024-02-08 13:46 | Outpatient (REF) | payer OTHER, SELFPAY | LOC: RCS 13:46 | PROVIDERS: ATTENDING PHYSICIAN Internal Medicine; FAMILY PHYSICIAN Internal Medicine | DX: I71.03 Dissection of thoracoabdominal aorta (principal); I35.1 Nonrheumatic aortic (valve) insufficiency; I34.0 Nonrheumatic mitral (valve) insufficiency; I10 Essential (primary) hypertension; I36.1 Nonrheumatic tricuspid (valve) insufficiency | CPT/HCPCS: 93306 ==

== ENCOUNTER → 2024-02-25 10:26 | Outpatient (REF) | payer OTHER, SELFPAY | LOC: RCS 10:26 | PROVIDERS: ATTENDING PHYSICIAN Internal Medicine; FAMILY PHYSICIAN Internal Medicine | DX: R00.1 Bradycardia, unspecified (principal); R00.2 Palpitations | CPT/HCPCS: 93225; 93226 ==

== ENCOUNTER 2024-03-06 08:38 | Day surgery (SDC) | payer OTHER, SELFPAY ==
[2024-03-06] VITALS (10 sets, daily range): BP systolic 128–146; BP diastolic 47–91; BMI 23.3
--- NOTE | 2024-03-06 11:37 | ITS.CL.PACE ---
[employer] - Pacemaker Implant
Pacemaker Implant
Procedure Report:
Dual Chamber Pacemaker Placement:
Ms. 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
for PPM placement.�
Indications: Tachy Richardson syndrome
Date of the Procedure: 03/06/24
Pre-Operative Diagnosis: Tachy Richardson syndrome
Post-Operative Diagnosis: Tachy Richardson syndrome
Procedure Performed: DUAL CHAMBER PACEMAKER IMPLANTATION
Performing Physician:
Rios Garcia MD
Assistants:
EP staff
Anesthesia:
Midazolam 1 mg and Fentanyl 125 mcg
Pre-operative antibiotics:
Ancef
Detailed Description of the Procedure:
The patient was identified using hospital identification and informed consent obtained for the procedure. The risks were explained including, but not limited to: Bleeding, infection, arrhythmia, stroke, vascular/cardiac/lung puncture, surgery,
pacemaker dependency/device malfunction. All questions were answered.
The patient was brought to the electrophysiology laboratory in stable condition in fasting state. Continuous electrocardiographic and hemodynamic monitoring was initiated.
The initial rhythm was sinus bradycardia to 30s.
A surgical pause and time out was performed immediately prior to the procedure with review of her medical history, recent labs, allergies and medications with site of procedure identified and consent noted in the chart. Antibiotics pre operatively
given. All team members concurred.
The procedure site was meticulously prepared with surgical scrub and allowed to dry with no pooling. Sterile draping was applied to cover the procedure site. The image intensifier was draped with sterile bag and positioned over the patient.
The left infraclavicular region was prepped and draped in the usual sterile fashion. Local anesthesia was administered subcutaneously using 1% lidocaine / Bupivacaine. The left cephalic vein cutdown was performed with an incision at the
delto-pectoral groove, and vascular sheaths were introduced for lead access. These were advanced into the right ventricle and the right atrium.
There were extreme tortuosity noted in the subclavian vein and long sheaths were needed. The cardiac chambers were rotated as well.
The right ventricular lead was secured in position with an active fixation technique at the apical septal location.
The RA lead was attached in the right atrial appendage with active fixation.
There was excellent sensing, pacing, and impedance from the leads, with no diaphragmatic stimulation at 10 V output.�Bovie cautery, antibiotics, and fluoroscopy were used.
The sheaths were withdrawn, and the thresholds remained acceptable. The leads were secured in position at the venous entry site with 2-0 Ethibond. A pocket was fashioned contiguous to the incision. The electrode terminals were connected to the pulse
generator, which was placed into the pocket.
The generator was anchored to the underlying fascia using 2-0 Ethibond. The wound was irrigated thoroughly with antibiotic solution.
The wound was closed in 3 layers using 2-0 V loc then two layers of 4-0 V loc sutures to the dermis. Steri-strips were applied externally and covered with Aquacel bandage.
Procedure End:
The procedure was tolerated well.
Estimated Blood loss:
10 cc
Specimens Removed:
No cultures and no specimens were obtained. No intraoperative pathology was identified.
Fluoro time:
1.0 min / 3.4mGy
Urine output:
None
Packs / Drains/ Tubes:
None
Instrument / Sponge Count Correct:
Yes
Complications of the Procedure:
None
Condition of Patient at Time of Transfer:
Hemodynamically stable with no neurological or vascular compromise.
Device information:�
Generator: [employer]; Model: [id number]; Serial # [id number]�
Atrial Lead:
[employer]; Model: 5076-45; Serial # [id number]�
Measured data in the right atrium was sensing of 1.8 mV, impedance of 532 ohms and threshold of 1.0 V at 0.4ms.
RV Lead:
[employer]; Model: 5076-52; Serial # [id number]
Measured data in the RV lead was sensing of 6.5 mV, impedance of 627 ohms and threshold of 0.75V at 0.4ms�
Richardson parameter settings were AAIR < = > DDDR 60-130 bpm. �
����������� Mode Switch: On
����������� Paced AV interval: 180ms
����������� Sensed AV interval: 150 ms.
����������� Rate Adaptive A-V Interval: Off
Output parameters:
����������������������� Amplitude (V)������������� Pulse Width (ms)������� Sensitivity (mV)
����������� RA: ���� 3.5 ����������������� ����������� 0.4������������������ ����������� 0.3
����������� RV:����� 3.5������������������ ����������� 0.4������������������ ����������� 0.9
Summary:
Successful implantation of MRI compatible dual chamber pacemaker
Results/Recommendations:
-Please follow up CXR�
1. Please provide patient with adequate pain control�
Instructions to be given to patient:�
- Please follow up with [facility] at [address] [place] [address] ([phone]) to get your wound checked within 14 days of your discharge.
- Do not wet incision site until after it is evaluated at cardiology clinic. No soaking or bath until then. Showers or Sponge baths are OK.�Dab dry the area after a shower.
- Do not lift left elbow above shoulder, particularly with sudden jerking movements, for 1 month�
- Do not lift anything weighing more than 10 pounds with the left arm for 1 month�
- If you notice any fevers, shortness of breath, lightheadedness, chest pain, or worsening swelling in the wound site, please contact the arrhythmia clinic, contact your primary montessori teacher, or present to the hospital for evaluation.�
Rios Garcia MD
Electrophysiology
[2024-03-06] MEDS: LOPRESSOR 5 MG IV (12:16)
[2024-03-06] MEDS: COZAAR 100 MG PO (12:45)
[2024-03-06] MEDS: NORVASC 10 MG PO (12:45)
--- NOTE | 2024-03-06 14:50 | W.PN.UPDATE ---
Update Note
Progress Note Update
Pt seen post DC PPM implant. Left ACW w/aquacel dressing CDI, no ht/bleeding, non tender. Post CXR w/stable lead position, no pneumothorax. Activity restrictions reviewed w/pt. Hold eliquis tonight and ok to resume in AM. Incision check next week at
CBC.
Post EKG Apaced w/PVCs. Pt stated she could feel the impulse and heart beat in her left chest, palpable on exam with PVCs. Frequent PVCs noted on tele, at least 2-3/screen. [employer] rep at bedside and adjusted parameters, now DDD at 75. With
adjusted settings, she felt less impulse. Also given Lopressor 5mg IVP x1 with good PVC suppression. Pt is comfortable now and will continue on metoprolol XL as before.
Home later today if tele/device site remain stable.
[2024-03-06] MEDS: ANCEF 5 IV (15:47)
== END 2024-03-06 16:15 | disposition home or self-care (01) ==
LOC: CATH 08:38
PROVIDERS: ATTENDING PHYSICIAN Internal Medicine Cardiovascular Disease; FAMILY PHYSICIAN Internal Medicine; OTHER PHYSICIAN Internal Medicine
DX: I49.5 Sick sinus syndrome (principal); I48.0 Paroxysmal atrial fibrillation; Z79.01 Long term (current) use of anticoagulants; I10 Essential (primary) hypertension; I47.20 Ventricular tachycardia, unspecified; M19.90 Unspecified osteoarthritis, unspecified site; Z79.899 Other long term (current) drug therapy; Z79.890 Hormone replacement therapy
CPT/HCPCS: 33208; 33249; 71045; 93005; C1785; C1892; C1898

== ENCOUNTER → 2024-09-08 12:47 | Outpatient (REF) | payer MEDICARE, SELFPAY ==
[2024-09-08 13:40] LABS: % Basophils 0.8 % (0-2); % Eosinophils 2.9 % (0-6); % Immature Granulocytes 0.2 % (0-0.5); % Lymphocytes 35.5 % (20.5-51.1); % Monocytes 10.4 % (1.7-9.3); % Neutrophils 50.2 % (42.2-75.2); Absolute Eosinophils 0.1 10^3/uL (0-0.7); Absolute Lymphocytes 1.7 10^3/uL (1.2-3.4); Absolute Monocytes 0.5 10^3/uL (0.1-0.6); Absolute Neutrophils 2.5 10^3/uL (1.4-6.5); Hematocrit 38.2 % (37.0-47.0); Hemoglobin 13.1 g/dL (12.0-16.0); Mean Corp Hgb Conc. 34.3 g/dL (33.0-37.0); Mean Corpuscular Hgb 31.1 pg (27.0-31.0); Mean Corpuscular Volume 90.7 fL (81.0-99.0); Mean Platelet Volume 10.3 fL (7.4-10.4); Nucleated Red Blood Cells % 0 %; Platelet Count 147 10^3/uL (130-400); Red Blood Cell Count 4.21 10^6/uL (4.20-5.40); Red Cell Dist. Width 12.4 % (11.5-14.5); White Blood Cell Count 4.9 10^3/uL (4.8-10.8)
[2024-09-08 14:19] LABS: ALT (SGPT) 24 U/L (0-35); AST (SGOT) 34 U/L (14-36); Albumin 4.5 g/dl (3.5-5.0); Alkaline Phosphatase 78 U/L (38-126); Blood Urea Nitrogen 18 mg/dl (7-17); Calcium 9.5 mg/dl (8.4-10.2); Carbon Dioxide 30 mmol/L (22-30); Chloride 102 mmol/L (98-107); Glucose 89 mg/dl (70-99); Potassium 4.7 mmol/L (3.5-5.1); Sodium 137 mmol/L (135-145); Total Bilirubin 0.9 mg/dl (0.2-1.3); Total Protein 7.2 g/dl (6.3-8.2); eGFR > 60.00
[2024-09-08 14:46] LABS: TSH Reflex To Free T4 1.56 uIU/ml (0.47-4.68)
[2024-09-08 15:26] LABS: Vitamin B12 847 pg/ml (239-931)
== END ==
LOC: REG 12:47
PROVIDERS: ATTENDING PHYSICIAN Physician Assistant; OTHER PHYSICIAN Internal Medicine
DX: I10 Essential (primary) hypertension (principal); I71.03 Dissection of thoracoabdominal aorta; I47.0 Re-entry ventricular arrhythmia; E53.8 Deficiency of other specified B group vitamins; I49.5 Sick sinus syndrome
CPT/HCPCS: 36415; 80053; 82607; 84443; 85025

== ENCOUNTER → 2024-09-12 09:22 | Outpatient (REF) | payer MEDICARE, SELFPAY ==
[2024-09-12 12:30] LABS: C-Reactive Protein < 5.00 mg/L (0.0-10.00)
[2024-09-12 14:10] LABS: Erythrocyte Sed Rate 6 mm/hour (0-20)
[2024-09-12 15:43] LABS: HDL Cholesterol 105 mg/dl; LDL Cholesterol, Calculated 141 mg/dl; Total Cholesterol 266 mg/dl (50-199); Triglyceride 102 mg/dl (10-149); Very Low Density Lipoprotein 20 mg/dl (0-30)
== END ==
LOC: HWLAB 09:22
PROVIDERS: ATTENDING PHYSICIAN Physician Assistant
DX: R51.9 Headache, unspecified (principal); R20.0 Anesthesia of skin; I10 Essential (primary) hypertension; I71.03 Dissection of thoracoabdominal aorta; E53.8 Deficiency of other specified B group vitamins; I47.10 Supraventricular tachycardia, unspecified; I49.5 Sick sinus syndrome
CPT/HCPCS: 36415; 80061; 85652; 86140

== ENCOUNTER → 2024-11-13 13:36 | Outpatient (REF) | payer MEDICARE, SELFPAY | LOC: HWRAD 13:36 | PROVIDERS: ATTENDING PHYSICIAN Physician Assistant; FAMILY PHYSICIAN Internal Medicine | DX: N95.9 Unspecified menopausal and perimenopausal disorder (principal); Z12.31 Encounter for screening mammogram for malignant neoplasm of breast | CPT/HCPCS: 77063; 77067; 77080 ==

== ENCOUNTER → 2024-12-04 12:47 | Outpatient (REF) | payer MEDICARE, SELFPAY | LOC: HWRCS 12:47 | PROVIDERS: ATTENDING PHYSICIAN Internal Medicine; FAMILY PHYSICIAN Internal Medicine | DX: Z01.810 Encounter for preprocedural cardiovascular examination (principal); I48.0 Paroxysmal atrial fibrillation; I35.1 Nonrheumatic aortic (valve) insufficiency; I34.0 Nonrheumatic mitral (valve) insufficiency; R06.09 Other forms of dyspnea | CPT/HCPCS: 93306 ==

== ENCOUNTER → 2024-12-05 11:57 | Outpatient (REF) | payer MEDICARE, SELFPAY | LOC: HWRCS 11:57 | PROVIDERS: ATTENDING PHYSICIAN Internal Medicine; FAMILY PHYSICIAN Internal Medicine | DX: Z01.810 Encounter for preprocedural cardiovascular examination (principal); I48.0 Paroxysmal atrial fibrillation; I35.1 Nonrheumatic aortic (valve) insufficiency; I34.0 Nonrheumatic mitral (valve) insufficiency; R06.09 Other forms of dyspnea | CPT/HCPCS: 78452; 93017; A9500; J2785 ==

== ENCOUNTER → 2024-12-13 13:06 | Outpatient (REF) | payer MEDICARE, SELFPAY ==
[2024-12-13 16:09] LABS: % Basophils 0.4 % (0-2); % Eosinophils 2.7 % (0-6); % Immature Granulocytes 0.2 % (0-0.5); % Lymphocytes 31.7 % (20.5-51.1); % Monocytes 10.6 % (1.7-9.3); % Neutrophils 54.4 % (42.2-75.2); Absolute Eosinophils 0.1 10^3/uL (0-0.7); Absolute Lymphocytes 1.4 10^3/uL (1.2-3.4); Absolute Monocytes 0.5 10^3/uL (0.1-0.6); Absolute Neutrophils 2.5 10^3/uL (1.4-6.5); Hematocrit 37.5 % (37.0-47.0); Hemoglobin 12.8 g/dL (12.0-16.0); Mean Corp Hgb Conc. 34.1 g/dL (33.0-37.0); Mean Corpuscular Hgb 31.8 pg (27.0-31.0); Mean Corpuscular Volume 93.1 fL (81.0-99.0); Mean Platelet Volume 11.2 fL (7.4-10.4); Nucleated Red Blood Cells % 0 %; Platelet Count 158 10^3/uL (130-400); Red Blood Cell Count 4.03 10^6/uL (4.20-5.40); Red Cell Dist. Width 12.2 % (11.5-14.5); White Blood Cell Count 4.5 10^3/uL (4.8-10.8)
[2024-12-13 16:15] LABS: Blood Urea Nitrogen 15 mg/dl (7-17); Calcium 9.3 mg/dl (8.4-10.2); Carbon Dioxide 25 mmol/L (22-30); Chloride 108 mmol/L (98-107); Glucose 98 mg/dl (70-99); Potassium 4.2 mmol/L (3.5-5.1); Sodium 140 mmol/L (135-145); eGFR > 60.00
[2024-12-13 21:40] LABS: Urine Albumin 1+ (Neg - Trace); Urine Bilirubin Negative (Negative); Urine Character Cloudy (Clear); Urine Color Yellow; Urine Glucose Negative (Negative); Urine Ketone Negative (Negative); Urine Leukocyte 2+ (Negative); Urine Nitrite Negative (Negative); Urine Occult Blood 1+ (Negative); Urine Urobilinogen Negative (Neg - 1+)
[2024-12-13 21:47] LABS: Urine Amorphous Seen; Urine Bacteria Many (Negative); Urine Red Blood Cell 0-2 /HPF (0-2)
[2024-12-13 21:48] LABS: Urine Calcium Oxalate Crystals Present
== END ==
LOC: HWLAB 13:06
PROVIDERS: ATTENDING PHYSICIAN Urology; FAMILY PHYSICIAN Internal Medicine
DX: Z01.812 Encounter for preprocedural laboratory examination (principal)
CPT/HCPCS: 36415; 80048; 81003; 81015; 85025; 87086

== ENCOUNTER → 2025-01-23 08:02 | Outpatient (REF) | payer MEDICARE, SELFPAY ==
[2025-01-23 13:38] LABS: ALT (SGPT) 26 U/L (0-35); AST (SGOT) 29 U/L (14-36); Albumin 4.3 g/dl (3.5-5.0); Alkaline Phosphatase 70 U/L (38-126); Blood Urea Nitrogen 19 mg/dl (7-17); Calcium 9.3 mg/dl (8.4-10.2); Carbon Dioxide 25 mmol/L (22-30); Chloride 110 mmol/L (98-107); Glucose 94 mg/dl (70-99); Potassium 4.4 mmol/L (3.5-5.1); Sodium 141 mmol/L (135-145); Total Bilirubin 0.8 mg/dl (0.2-1.3); Total Protein 6.4 g/dl (6.3-8.2); eGFR > 60.00
== END ==
LOC: HWLAB 08:02
PROVIDERS: ATTENDING PHYSICIAN Internal Medicine; FAMILY PHYSICIAN Internal Medicine
DX: I10 Essential (primary) hypertension (principal); I47.10 Supraventricular tachycardia, unspecified; I49.5 Sick sinus syndrome
CPT/HCPCS: 36415; 80053

== ENCOUNTER → 2025-01-30 08:48 | Outpatient (REF) | payer MEDICARE, SELFPAY | LOC: RAD 08:48 | PROVIDERS: ATTENDING PHYSICIAN Internal Medicine; FAMILY PHYSICIAN Internal Medicine | DX: I71.03 Dissection of thoracoabdominal aorta (principal) | CPT/HCPCS: 71275; Q9967 ==